=== PATIENT | female | born 1950 | race Caucasian/White ===

== ENCOUNTER 2016-11-18 15:36 | Emergency (ER) | payer OTHER ==
[~2016-11-18] VITALS: Ht 167.6 cm; Wt 72.8 kg
[2016-11-18] MEDS ORDERED: NITROGLYCERIN SINGLE TAB 0.4 MG SL PRN (16:00)
[2016-11-18] MEDS ORDERED: SODIUM CHLORIDE FLUSH 10ML SYR IVF ONE (16:00)
[2016-11-18] MEDS ORDERED: MONT10TA6 PO (16:19)
[2016-11-18] MEDS ORDERED: LISI-170 PO (16:19)
[2016-11-18] MEDS ORDERED: ALBU18HF INH (16:19)
[2016-11-18 16:20] LABS: HEMATOCRIT 42.9 % (34.6-47.8); HEMOGLOBIN 14.6 g/dL (11.7-16.4); WHITE BLOOD COUNT 4.9 x10^3/uL (3.4-10)
[2016-11-18 16:32] LABS: BLOOD UREA NITROGEN 21 mg/dL (7-18)
[2016-11-18 16:39] LABS: IS PT STATUS REG ER OR PRE ER? YES
[2016-11-18 18:07] VITALS: BP 161/83
== END 2016-11-18 18:09 | disposition home or self-care (01) ==
LOC: ED 18:03
DX: R07.9 Chest pain, unspecified (principal); R20.0 Anesthesia of skin
CPT/HCPCS: 36415; 71010; 80048; 82040; 83880; 84484; 85025; 93005; 99285

== ENCOUNTER → 2016-12-22 | Outpatient (CLI) | payer OTHER ==
[~2016-12-22] MED LIST: ALBU18HF INH; LISI-170 PO; MONT10TA6 PO
== END | disposition home or self-care (01) ==
LOC: CVU 09:07
PROVIDERS: ATTEND Internal Medicine Cardiovascular Disease
DX: I35.8 Other nonrheumatic aortic valve disorders (principal); I10 Essential (primary) hypertension; E78.5 Hyperlipidemia, unspecified; Z87.891 Personal history of nicotine dependence
CPT/HCPCS: 93017; 93306

== ENCOUNTER → 2018-01-21 | Outpatient (CLI) | payer MEDICARE ==
[~2018-01-21] MED LIST changes: +OMNIPAQUE 350 MG/ML, 100ML BOTTLE ONE
== END | disposition home or self-care (01) ==
LOC: CFH 12:42
PROVIDERS: ATTEND Nurse Practitioner Primary Care
DX: R51 Headache (principal); J34.1 Cyst and mucocele of nose and nasal sinus
CPT/HCPCS: 70460; Q9967

== ENCOUNTER → 2018-03-14 | Outpatient (CLI) | payer MEDICARE ==
[~2018-03-14] MED LIST changes: -OMNIPAQUE 350 MG/ML, 100ML BOTTLE ONE
== END | disposition home or self-care (01) ==
LOC: CFH 15:35
PROVIDERS: ATTEND Nurse Practitioner Primary Care
DX: S83.241A Other tear of medial meniscus, current injury, right knee, initial encounter (principal); S83.281A Other tear of lateral meniscus, current injury, right knee, initial encounter; M17.11 Unilateral primary osteoarthritis, right knee; X58.XXXA Exposure to other specified factors, initial encounter; Y93.89 Activity, other specified; Y92.89 Other specified places as the place of occurrence of the external cause; Y99.8 Other external cause status

== ENCOUNTER 2019-04-04 22:41 | Emergency (ER) | payer MEDICARE ==
[~2019-04-04] VITALS: Ht 167.6 cm; Wt 70.9 kg
[2019-04-04 22:52] VITALS: BP 136/88
[2019-04-04] MEDS ORDERED: OXYMETAZOLINE NASAL SPRAY 0.05%,30ML ONE ×3 (22:54→23:55)
[2019-04-04] MEDS ORDERED: OXYMETAZOLINE NASAL SPRAY 0.05%, 15ML NAS ONE (23:00)
--- NOTE | 2019-04-04 23:05 | NUR ---
pt sitting up in chair stated nose bleed since 2099 today, takes aspirin. bleeding controlled, nose clip i place, erp at pt's side for eval
== END 2019-04-05 00:15 | disposition home or self-care (01) ==
LOC: ED 23:50
DX: R04.0 Epistaxis (principal); I10 Essential (primary) hypertension
CPT/HCPCS: 99282

== ENCOUNTER 2019-04-21 12:03 | Inpatient (IN) | payer MEDICARE ==
[~2019-04-21] VITALS: Ht 167.6 cm; Wt 70.1 kg
[2019-04-21] MEDS ORDERED: DILTIAZEM 5 MG/ML, 5ML IV ONE ×2 (12:30→13:00)
[2019-04-21] MEDS ORDERED: ASPIRIN 81 MG TABLET CHEW ONE (12:35)
[2019-04-21 12:55] LABS: BASOPHILS # (AUTO) 0.03 x10^3/uL (0-0.1); BASOPHILS % (AUTO) 1 % (0-1); EOSINOPHILS # (AUTO) 0.07 x10^3/uL (0-0.4); EOSINOPHILS % (AUTO) 1 % (1-7); LYMPHOCYTES # (AUTO) 1.65 x10^3/uL (1-3.4); LYMPHOCYTES % (AUTO) 31 % (22-44); MD NO; MEAN CORPUSCULAR HEMOGLOBIN 31.6 pg (27.0-34.8); MEAN CORPUSCULAR HGB CONC 33.1 g/dL (32.4-35.8); MEAN CORPUSCULAR VOLUME 95.4 fL (80-100); MEAN PLATELET VOLUME 9.6 fL (7.4-10.4); MONOCYTES # (AUTO) 0.48 x10^3/uL (0.2-0.8); MONOCYTES % (AUTO) 9 % (2-9); NEUTROPHILS # (AUTO) 3.14 x10^3/uL (1.8-6.8); NEUTROPHILS % (AUTO) 59 % (42-75); PLATELET COUNT 303 x10^3/uL (130-400); RED BLOOD COUNT 4.68 x10^6/uL (3.82-5.3); RED CELL DISTRIBUTION WIDTH 13.9 % (9.6-15.2)
[2019-04-21] MEDS: DILTIAZEM 125 MG in SODIUM CHLORIDE 0.9% 100 ML IV SCH ×3 (12:56→13:08)
[2019-04-21] MEDS ORDERED: ASPIRIN 81 MG TABLET CHEW PO ONE (13:00)
[2019-04-21 13:02] LABS: INTERNATIONAL NORMALIZED RATIO 1.01 (0.93-1.1); PROTHROMBIN TIME 10.7 Seconds (9.6-11.5)
[2019-04-21 13:03] LABS: ANION GAP 11 mmol/L (5-15); CALCIUM 9.1 mg/dL (8.5-10.1); CHLORIDE 107 mmol/L (98-107); T4 (THYROXINE) 9.1 mcg/dL (4.8-13.9)
[2019-04-21 13:06] LABS: TROPONIN I < 0.015 ng/mL (0.000-0.045)
[2019-04-21] MEDS ORDERED: SODIUM CHLORIDE FLUSH 10ML SYR IVF ONE (13:30)
--- NOTE | 2019-04-21 13:36 | NUR ---
PT ARRIVED TO ROOM, CHANGED INTO GOWN, ATTACHED TO CRASH PADS AND MONITORS. IV STARTED IN R FOREARM. PT EDUCATED ON PROCESS AND PLAN OF CARE. DILTIAZEM PUSH AND DRIP GIVEN TO GOOD EFFECT. HR ORIGINALLY 130'S-180'S, NOW 80'S-110'S. DENIES ANY NEEDS OR CONCERNS AT THIS TIME. CALL LIGHT IN REACH.
--- NOTE | 2019-04-21 14:09 | NUR ---
Report recieved from Carlotta JACKSNO
[2019-04-21] MEDS ORDERED: ventolin hfa (14:21)
[2019-04-21] MEDS ORDERED: LOSA1TAB22 PO (14:21)
[2019-04-21] MEDS ORDERED: ASPI-515 PO (14:21)
[2019-04-21] MEDS ORDERED: ATOR20TA86 PO (14:21)
[2019-04-21] MEDS ORDERED: AMLO5TAB10 PO (14:21)
[2019-04-21] MEDS ORDERED: MOME220A9 INH (14:21)
--- NOTE | 2019-04-21 14:22 | NUR ---
Kian churchillmarcelina in [facility] - 04/21/19 at 1425 by LHAFEN Med rec completed, pt resting in bed, HR maintains a controlled rate on gtt, denies cp, skin pwd, speech clear, denies further needs
--- NOTE | 2019-04-21 14:25 | NUR ---
Med rec completed, pt resting in bed, HR maintains a controlled rate on gtt, denies cp, skin pwd, speech clear, denies further needs
[2019-04-21] MEDS ORDERED: SODIUM CHLORIDE FLUSH 10ML SYR IVF PRN (15:30)
[2019-04-21] MEDS ORDERED: ENOXAPARIN 60 MG/0.6 ML SQ SCH (16:00)
--- NOTE | 2019-04-21 16:20 | NUR ---
REPORT GIVEN TO IRON JACKSON
[2019-04-21] MEDS ORDERED: DILTIAZEM 125 MG in SODIUM CHLORIDE 0.9% 100 ML IV SCH (16:30)
[2019-04-21] MEDS ORDERED: ONDANSETRON 2MG/ML, 2ML IVPush PRN (17:00)
[2019-04-21] MEDS ORDERED: Enoxaparin 1 mg/kg protocol SQ SCH (17:00)
[2019-04-21] MEDS ORDERED: ACETAMINOPHEN 325 MG TABLET PO PRN (17:00)
[2019-04-21] MEDS ORDERED: PROMETHAZINE 25 MG/ML, 1ML IM PRN (17:00)
[2019-04-21] MEDS ORDERED: BISACODYL 10 MG SUPP PR PRN (17:00)
[2019-04-21] MEDS ORDERED: POLYETHYLENE GLYCOL 17 GM PACKET PO PRN (17:00)
[2019-04-21] MEDS ORDERED: DOCUSATE 100 MG CAPSULE PO PRN (17:00)
[2019-04-21] MEDS ORDERED: MORPHINE SULFATE 4 MG/ML, 1ML IVPush PRN (17:00)
[2019-04-21 17:10] LABS: TROPONIN I < 0.015 ng/mL (0.000-0.045)
[2019-04-21] MEDS ORDERED: ENOXAPARIN 60 MG/0.6 ML ONE (18:04)
[2019-04-21] MEDS: ENOXAPARIN 60 MG/0.6 ML SQ SCH (18:25)
--- NOTE | 2019-04-21 18:38 | NUR ---
meal tray given
--- NOTE | 2019-04-21 20:00 | NUR ---
BREAK RN: PT WATCHING TV IN ROOM. VS STABLE. CALL LIGHT IN PLACE. PATCH FINISHER ON. CALL LIGHT IN PLACE. WILL CONTINUE TO MONITOR WHILE PRIMARY RN IS ON BREAK.
--- NOTE | 2019-04-21 20:44 | NUR ---
repeat vs obtained, improved b/p of 106/65, pt resting in bed, denies pain or further needs
--- NOTE | 2019-04-21 22:07 | NUR ---
repeat vs obtained, returned to bed from BSC, denies pain or further needs
--- NOTE | 2019-04-21 22:12 | NUR ---
Report given to Milana JACKSON from Tele
[2019-04-21 22:44] LABS: TROPONIN I < 0.015 ng/mL (0.000-0.045)
[2019-04-21 23:24] VITALS: BP 120/76
[2019-04-22 01:52] VITALS: BP 110/69
[2019-04-22] MEDS: DILTIAZEM 125 MG in SODIUM CHLORIDE 0.9% 100 ML IV SCH (01:55)
[2019-04-22 05:54] LABS: BASOPHILS # (AUTO) 0.02 x10^3/uL (0-0.1); BASOPHILS % (AUTO) 1 % (0-1); EOSINOPHILS # (AUTO) 0.07 x10^3/uL (0-0.4); EOSINOPHILS % (AUTO) 2 % (1-7); LYMPHOCYTES # (AUTO) 1.98 x10^3/uL (1-3.4); LYMPHOCYTES % (AUTO) 48 % (22-44); MD NO; MEAN CORPUSCULAR HEMOGLOBIN 31.8 pg (27.0-34.8); MEAN CORPUSCULAR HGB CONC 33.3 g/dL (32.4-35.8); MEAN CORPUSCULAR VOLUME 95.3 fL (80-100); MEAN PLATELET VOLUME 9.8 fL (7.4-10.4); MONOCYTES # (AUTO) 0.38 x10^3/uL (0.2-0.8); MONOCYTES % (AUTO) 9 % (2-9); NEUTROPHILS # (AUTO) 1.66 x10^3/uL (1.8-6.8); NEUTROPHILS % (AUTO) 40 % (42-75); PLATELET COUNT 232 x10^3/uL (130-400); RED BLOOD COUNT 4.18 x10^6/uL (3.82-5.3)
[2019-04-22 05:57] LABS: CHLORIDE 109 mmol/L (98-107)
[2019-04-22] MEDS: ENOXAPARIN 60 MG/0.6 ML SQ SCH (06:04)
[2019-04-22 06:11] LABS: ALANINE AMINOTRANSFERASE 25 U/L (12-78); ALBUMIN 3.4 g/dL (3.4-5.0); ALKALINE PHOSPHATASE 75 U/L (45-117); ANION GAP 6 mmol/L (5-15); BILIRUBIN,TOTAL 0.7 mg/dL (0.2-1.0); CALCIUM 8.9 mg/dL (8.5-10.1); CHOL/HDL RATIO 2.9; CHOLESTEROL, TOTAL 150 mg/dL (140-239); CREATININE 0.95 mg/dL (0.55-1.02); HDL CHOL % 34 % (28-40); HDL CHOLESTEROL (DIRECT) 51 mg/dL (40-60); LDL CHOLESTEROL,CALCULATED 57 mg/dL (54-169); LDL/HDL RATIO 1.1 (0.5-3.0); TOTAL PROTEIN 6.1 g/dL (6.4-8.2); TRIGLYCERIDES 209 mg/dL (50-200); VLDL CHOLESTEROL 42 mg/dL (0-25)
[2019-04-22 08:02] VITALS: BP 102/69
[2019-04-22] MEDS ORDERED: LOSARTAN 100 MG TAB PO SCH (09:00)
[2019-04-22] MEDS ORDERED: ATORVASTATIN 10 MG TABLET PO SCH ×2 (09:00→21:00)
[2019-04-22] MEDS ORDERED: HYDROCHLOROTHIAZIDE 25 MG TABLET PO SCH (09:00)
[2019-04-22] MEDS: ASPIRIN 81 MG TABLET EC PO SCH (09:08)
[2019-04-22 13:17] VITALS: BP 104/68
[2019-04-22] MEDS: METOPROLOL TARTRATE 50 MG TAB PO SCH ×2 (14:01→21:00)
[2019-04-22 17:47] VITALS: BP 97/61
[2019-04-22] MEDS: APIXABAN 5 MG TABLET PO SCH (17:50)
[2019-04-22 18:00] VITALS: BP 97/61
[2019-04-23 01:43] VITALS: BP 107/66
[2019-04-23 05:53] LABS: BASOPHILS # (AUTO) 0.03 x10^3/uL (0-0.1); BASOPHILS % (AUTO) 1 % (0-1); EOSINOPHILS # (AUTO) 0.08 x10^3/uL (0-0.4); EOSINOPHILS % (AUTO) 2 % (1-7); LYMPHOCYTES # (AUTO) 1.69 x10^3/uL (1-3.4); LYMPHOCYTES % (AUTO) 42 % (22-44); MD NO; MEAN CORPUSCULAR HEMOGLOBIN 31.9 pg (27.0-34.8); MEAN CORPUSCULAR HGB CONC 33.7 g/dL (32.4-35.8); MEAN CORPUSCULAR VOLUME 94.7 fL (80-100); MEAN PLATELET VOLUME 9.8 fL (7.4-10.4); MONOCYTES # (AUTO) 0.42 x10^3/uL (0.2-0.8); MONOCYTES % (AUTO) 10 % (2-9); NEUTROPHILS # (AUTO) 1.82 x10^3/uL (1.8-6.8); NEUTROPHILS % (AUTO) 45 % (42-75); PLATELET COUNT 243 x10^3/uL (130-400); RED BLOOD COUNT 4.43 x10^6/uL (3.82-5.3); RED CELL DISTRIBUTION WIDTH 14.2 % (9.6-15.2)
[2019-04-23 05:56] VITALS: BP 110/67
[2019-04-23] MEDS: METOPROLOL TARTRATE 50 MG TAB PO SCH (05:58)
[2019-04-23] MEDS: APIXABAN 5 MG TABLET PO SCH (05:59)
[2019-04-23 06:04] LABS: ANION GAP 4 mmol/L (5-15); CALCIUM 9.1 mg/dL (8.5-10.1); CHLORIDE 108 mmol/L (98-107)
[2019-04-23 06:05] LABS: CREATININE 1.03 mg/dL (0.55-1.02)
[2019-04-23 07:18] VITALS: BP 101/69
[2019-04-23] MEDS: ASPIRIN 81 MG TABLET EC PO SCH (09:23)
[2019-04-23] MEDS ORDERED: APIX5TAB PO (09:52)
[2019-04-23] MEDS ORDERED: METO50TA82 PO (09:52)
== END 2019-04-23 10:50 | disposition home or self-care (01) | DRG 310 ==
LOC: ED 15:47 → SUATTDRO 16:29 → EDIP 16:36 → 5SO 22:40 → DCLOUNGE 04-23 10:43
PROVIDERS: ADMIT Internal Medicine; ATTEND Internal Medicine
DX: I48.91 Unspecified atrial fibrillation (principal); E78.1 Pure hyperglyceridemia; E78.5 Hyperlipidemia, unspecified; J11.1 Influenza due to unidentified influenza virus with other respiratory manifestations; I12.9 Hypertensive chronic kidney disease with stage 1 through stage 4 chronic kidney disease, or unspecified chronic kidney disease; J45.20 Mild intermittent asthma, uncomplicated; N18.3 Chronic kidney disease, stage 3 (moderate); Z79.01 Long term (current) use of anticoagulants; Z82.0 Family history of epilepsy and other diseases of the nervous system; Z79.82 Long term (current) use of aspirin; Z79.899 Other long term (current) drug therapy
CPT/HCPCS: 36415; 71045; 80048; 80053; 80061; 82040; 83735; 83880; 84100; 84436; 84443; 84484; 85025; 85610; 85730; 93005; 93306; G0378; J1650

== ENCOUNTER 2019-04-26 10:16 | Day surgery (SDC) | payer MEDICARE ==
[~2019-04-26] VITALS: Ht 165.1 cm; Wt 66.3 kg
[~2019-04-26 10:16] MED LIST changes: +AMLO5TAB10 PO; +APIX5TAB PO; +ASPI-515 PO; +ATOR20TA86 PO; +LOSA1TAB22 PO; +METO50TA82 PO; +MOME220A9 INH; +PROPOFOL 10 MG/ML, 20ML ONE; +ventolin hfa
[2019-04-26] MEDS ORDERED: SODIUM CHLORIDE 0.9% 500 ML IV PRN (11:05)
[2019-04-26 11:09] VITALS: BP 141/107
[2019-04-26] MEDS ORDERED: PLEASE ENTER HEIGHT AND WEIGHT MC SCH (11:30)
[2019-04-26] MEDS ORDERED: SODIUM CHLORIDE 0.9% 1,000 ML IV SCH (11:30)
== END 2019-04-26 13:19 | disposition home or self-care (01) ==
LOC: CACL 10:16
PROVIDERS: ATTEND Internal Medicine Cardiovascular Disease
DX: I48.0 Paroxysmal atrial fibrillation (principal); I34.0 Nonrheumatic mitral (valve) insufficiency; I10 Essential (primary) hypertension; E78.5 Hyperlipidemia, unspecified; J45.909 Unspecified asthma, uncomplicated; Z79.01 Long term (current) use of anticoagulants; Z79.82 Long term (current) use of aspirin; Z79.899 Other long term (current) drug therapy
CPT/HCPCS: 92960; 93312; 93321; 93325; J2704

== ENCOUNTER 2019-06-15 11:03 | Day surgery (SDC) | payer MEDICARE ==
[~2019-06-15 11:03] MED LIST changes: -PROPOFOL 10 MG/ML, 20ML ONE
[2019-06-30] MEDS ORDERED: CETI-158 PO (08:34)
[2019-06-30] MEDS ORDERED: AMLO5TAB4 PO (08:34)
[2019-06-30] MEDS ORDERED: FLEC50TA25 PO (08:34)
[2019-06-30] MEDS ORDERED: ALBU18HF INH (08:34)
[2019-06-30] MEDS ORDERED: MONT10TA11 PO (08:34)
[2019-06-30] MEDS ORDERED: METO50TA82 PO (08:34)
[2019-06-30] MEDS ORDERED: LOSA25TA25 PO (08:34)
[2019-07-22] MEDS ORDERED: SOTA80TA18 PO (09:26)
== END 2019-06-15 11:42 | disposition home or self-care (01) ==
LOC: CACL 11:03
PROVIDERS: ATTEND Internal Medicine Cardiovascular Disease
DX: I48.91 Unspecified atrial fibrillation (principal); Z53.8 Procedure and treatment not carried out for other reasons; Z79.01 Long term (current) use of anticoagulants; Z79.899 Other long term (current) drug therapy; Z72.89 Other problems related to lifestyle; Z87.891 Personal history of nicotine dependence; Z85.828 Personal history of other malignant neoplasm of skin; Z82.49 Family history of ischemic heart disease and other diseases of the circulatory system
CPT/HCPCS: 93005

== ENCOUNTER → 2019-06-21 | Outpatient (CLI) | payer MEDICARE ==
[~2019-06-21] MED LIST changes: +REGADENOSON 0.4 MG/5 ML SYRINGE ONE
== END | disposition home or self-care (01) ==
LOC: CFH 12:04
PROVIDERS: ATTEND Internal Medicine Cardiovascular Disease
DX: I25.9 Chronic ischemic heart disease, unspecified (principal); I10 Essential (primary) hypertension
CPT/HCPCS: 78452; 93017; A9502; J2785

== ENCOUNTER 2019-09-12 06:09 | Day surgery (SDC) | payer MEDICARE ==
[~2019-09-12] VITALS: Ht 167.6 cm; Wt 68.2 kg
[~2019-09-12 06:09] MED LIST changes: +AMLO5TAB4 PO; +CETI-158 PO; +FLEC50TA25 PO; +LOSA25TA25 PO; +MONT10TA11 PO; -REGADENOSON 0.4 MG/5 ML SYRINGE ONE; +SOTA80TA18 PO
[2019-09-12] MEDS ORDERED: METO50TA82 PO (06:40)
[2019-09-12 06:56] VITALS: BP 124/94
[2019-09-12 07:21] LABS: BASOPHILS # (AUTO) 0.02 x10^3/uL (0-0.1); BASOPHILS % (AUTO) 1 % (0-1); EOSINOPHILS # (AUTO) 0.12 x10^3/uL (0-0.4); EOSINOPHILS % (AUTO) 4 % (1-7); LYMPHOCYTES # (AUTO) 1.13 x10^3/uL (1-3.4); LYMPHOCYTES % (AUTO) 37 % (22-44); MD NO; MEAN CORPUSCULAR HEMOGLOBIN 30.9 pg (27.0-34.8); MEAN CORPUSCULAR VOLUME 93.7 fL (80-100); MEAN PLATELET VOLUME 8.6 fL (7.4-10.4); MONOCYTES # (AUTO) 0.31 x10^3/uL (0.2-0.8); MONOCYTES % (AUTO) 10 % (2-9); NEUTROPHILS # (AUTO) 1.49 x10^3/uL (1.8-6.8); NEUTROPHILS % (AUTO) 49 % (42-75); PLATELET COUNT 228 x10^3/uL (130-400); RED BLOOD COUNT 4.52 x10^6/uL (3.82-5.3); RED CELL DISTRIBUTION WIDTH 13.6 % (9.6-15.2)
[2019-09-12 07:29] LABS: ANION GAP 4 mmol/L (5-15); CALCIUM 8.7 mg/dL (8.5-10.1); CHLORIDE 110 mmol/L (98-107)
[2019-09-12] MEDS ORDERED: PROPOFOL 10 MG/ML, 20ML ONE (09:28)
== END 2019-09-12 10:41 | disposition home or self-care (01) ==
LOC: CACL 06:09
PROVIDERS: ATTEND Internal Medicine Cardiovascular Disease
DX: I48.91 Unspecified atrial fibrillation (principal); E78.5 Hyperlipidemia, unspecified; I12.9 Hypertensive chronic kidney disease with stage 1 through stage 4 chronic kidney disease, or unspecified chronic kidney disease; N18.9 Chronic kidney disease, unspecified; J45.909 Unspecified asthma, uncomplicated; Z79.899 Other long term (current) drug therapy; Z79.01 Long term (current) use of anticoagulants; Z72.89 Other problems related to lifestyle; Z87.891 Personal history of nicotine dependence; Z85.828 Personal history of other malignant neoplasm of skin; Z82.49 Family history of ischemic heart disease and other diseases of the circulatory system
CPT/HCPCS: 36415; 71046; 80048; 85025; 92960; J2704

== ENCOUNTER 2019-09-28 13:05 | Day surgery (SDC) | payer MEDICARE ==
[~2019-09-28] VITALS: Ht 167.6 cm; Wt 68.2 kg
[2019-09-28] MEDS ORDERED: PROPOFOL 10 MG/ML, 20ML ONE (13:27)
[2019-09-28 13:30] VITALS: BP 119/71
[2019-09-28] MEDS ORDERED: SODIUM CHLORIDE FLUSH 10ML SYR IVF SCH (21:00)
== END 2019-09-28 14:37 | disposition home or self-care (01) ==
LOC: CACL 13:05
PROVIDERS: ATTEND Internal Medicine Cardiovascular Disease
DX: I48.91 Unspecified atrial fibrillation (principal); I12.9 Hypertensive chronic kidney disease with stage 1 through stage 4 chronic kidney disease, or unspecified chronic kidney disease; N18.9 Chronic kidney disease, unspecified; E78.5 Hyperlipidemia, unspecified; J45.909 Unspecified asthma, uncomplicated; Z79.899 Other long term (current) drug therapy; Z79.01 Long term (current) use of anticoagulants; Z85.828 Personal history of other malignant neoplasm of skin; Z72.89 Other problems related to lifestyle; Z87.891 Personal history of nicotine dependence; Z82.49 Family history of ischemic heart disease and other diseases of the circulatory system; Z98.890 Other specified postprocedural states
CPT/HCPCS: 92960; 93005; J2704

== ENCOUNTER 2019-10-12 11:03 | Outpatient (CLI) | payer MEDICARE | END 2019-10-12 23:59 | disposition home or self-care (01) | LOC: STAR 11:03 | PROVIDERS: ATTEND Anesthesiology | DX: Z01.818 Encounter for other preprocedural examination (principal); Z11.59 Encounter for screening for other viral diseases | CPT/HCPCS: 36415; 87635 ==

== ENCOUNTER 2019-10-12 14:21 | Emergency (ER) | payer MEDICARE ==
[~2019-10-12] VITALS: Ht 167.6 cm; Wt 69.9 kg
--- NOTE | 2019-10-12 14:43 | NUR ---
DR HERRING AT BEDSIDE TO CECE PT. 69 YR OLD FEMALE HERE WITH C/O "AFIB" WITH AN EPISODE OF SYNCOPE. "I PUT MY HEAD DOWN ON THE COUNTER AND WOKE UP ON THE FLOOR" THIS ALSO HAPPENED ON WEDNESDAY, HIT HEAD, STITCHES PLACED. WENT BACK INTO A NORMAL RHYTHM AFTER SYNCOPE EPISODE. PT SCHEDULED FOR SECOND ABLATION ON WEDNESDAY WITH DR. Amilcar MORSE. PT WITH EPISODES OF AFIB SINCE APR. PT TAKES ELIQUIS, METOPROLOL, FLECANIDE AND LOSARTAN.
[2019-10-12] MEDS ORDERED: DILTIAZEM 5 MG/ML, 5ML ONE (14:49)
[2019-10-12] MEDS ORDERED: SODIUM CHLORIDE 0.9% 1,000 ML IV ONE (14:51)
--- NOTE | 2019-10-12 14:58 | NUR ---
REPORT TO YULI Benitez RN.
[2019-10-12] MEDS ORDERED: SODIUM CHLORIDE FLUSH 10ML SYR IVF ONE (15:00)
[2019-10-12] MEDS ORDERED: DILTIAZEM 5 MG/ML, 5ML IV ONE (15:00)
[2019-10-12 15:19] LABS: BASOPHILS # (AUTO) 0.02 x10^3/uL (0-0.1); BASOPHILS % (AUTO) 1 % (0-1); EOSINOPHILS # (AUTO) 0.09 x10^3/uL (0-0.4); EOSINOPHILS % (AUTO) 2 % (1-7); LYMPHOCYTES # (AUTO) 0.94 x10^3/uL (1-3.4); LYMPHOCYTES % (AUTO) 18 % (22-44); MD NO; MEAN CORPUSCULAR HEMOGLOBIN 30.8 pg (27.0-34.8); MEAN CORPUSCULAR HGB CONC 32.2 g/dL (32.4-35.8); MEAN CORPUSCULAR VOLUME 95.6 fL (80-100); MEAN PLATELET VOLUME 9.8 fL (7.4-10.4); MONOCYTES # (AUTO) 0.34 x10^3/uL (0.2-0.8); MONOCYTES % (AUTO) 6 % (2-9); NEUTROPHILS # (AUTO) 3.85 x10^3/uL (1.8-6.8); NEUTROPHILS % (AUTO) 74 % (42-75); PLATELET COUNT 274 x10^3/uL (130-400); RED BLOOD COUNT 3.83 x10^6/uL (3.82-5.3); RED CELL DISTRIBUTION WIDTH 14.2 % (9.6-15.2)
[2019-10-12 15:23] LABS: ALBUMIN 4.1 g/dL (3.4-5.0); ANION GAP 6 mmol/L (5-15); CALCIUM 9.4 mg/dL (8.5-10.1); CHLORIDE 111 mmol/L (98-107)
[2019-10-12 15:27] LABS: TROPONIN I < 0.015 ng/mL (0.000-0.045)
--- NOTE | 2019-10-12 15:46 | NUR ---
PATIENT AMBULATORY WITH STEADY GAIT TO RESTROOM. HR MAINTAINING IN 70'S AFTER 10MG CARDIZEM PUSHED.
--- NOTE | 2019-10-12 16:31 | NUR ---
[facility] in [facility] - 10/12/19 at 1646 by FRANCO Patient given discharge instructions and they have confirmed that they understand the instructions. Patient ambulatory with steady gait.
[2019-10-12] MEDS ORDERED: METOPROLOL TARTRATE 25 MG TAB ONE (16:41)
--- NOTE | 2019-10-12 16:46 | NUR ---
UPONG GETTING PATIENT TO DISCHARGE, TALITA STATES "IT FEELS LIKE MY HEART IS RACING AGAIN". PLACED BACK ON BATTER MIXER. AFIB PRESENT IN 80'S-90'S. ERP NOTIFIED. ORDERS FOR PO METOPROLOL AND MONITORING PATIENT GIVEN
[2019-10-12] MEDS ORDERED: METOPROLOL TARTRATE 25 MG TAB PO ONE (17:00)
[2019-10-12 17:39] VITALS: BP 143/86
--- NOTE | 2019-10-12 17:39 | NUR ---
PATIENT MAINTAINING HR IN 70'S, ERP NOTIFIED. PATIENT FEELS COMFORTABLE BEING DISCHARGED, VERBALIZED UNDERSANDING OF DISCHARGE INSTRUCTIONS AND WHEN/IF TO RETURN TO ED.
== END 2019-10-12 17:51 | disposition home or self-care (01) ==
LOC: ED 16:14
DX: I48.92 Unspecified atrial flutter (principal); R42 Dizziness and giddiness; R55 Syncope and collapse; R00.2 Palpitations; R07.89 Other chest pain; I10 Essential (primary) hypertension; I48.91 Unspecified atrial fibrillation; E78.00 Pure hypercholesterolemia, unspecified
CPT/HCPCS: 36415; 71045; 80048; 82040; 84484; 85025; 93005; 96361; 96374; 99285; J7030

== ENCOUNTER 2019-10-16 06:06 | Observation (INO) | payer MEDICARE ==
[~2019-10-16] VITALS: Ht 167.6 cm; Wt 72.2 kg
[2019-10-16] MEDS ORDERED: SODIUM CHLORIDE 0.9% 1,000 ML IV SCH (06:37)
[2019-10-16 06:45] VITALS: BP 137/82
[2019-10-16] MEDS ORDERED: SODIUM CHLORIDE 0.9% 1,000 ML IV ONE (07:00)
[2019-10-16] MEDS ORDERED: MIDAZOLAM 1 MG/ML, 2ML ONE (08:25)
[2019-10-16] MEDS ORDERED: FENTANYL PF 250 MCG/5ML ONE (08:25)
[2019-10-16] MEDS ORDERED: SUCCINYLCHOLINE 20 MG/ML, 10ML ONE (08:26)
[2019-10-16] MEDS ORDERED: DEXAMETHASONE 4 MG/ML, 1ML ONE ×2 (08:26)
[2019-10-16] MEDS ORDERED: LIDOCAINE 1%, 20ML ONE (08:59)
[2019-10-16] MEDS ORDERED: HEPARIN 1,000 UNITS/ML, 10ML ONE ×3 (11:26)
[2019-10-16] MEDS ORDERED: ACETAMINOPHEN 325 MG TABLET PO PRN ×2 (12:30)
[2019-10-16] MEDS ORDERED: MIDAZOLAM 1 MG/ML, 2ML IV PRN (12:30)
[2019-10-16] MEDS ORDERED: HYDROmorphone 1 MG/ML, 1ML INJ IVPush PRN (12:30)
[2019-10-16] MEDS ORDERED: DIAZEPAM 5 MG/ML, 2ML IVPush PRN (12:30)
[2019-10-16] MEDS ORDERED: APIXABAN 5 MG TABLET PO SCH (12:30)
[2019-10-16] MEDS ORDERED: OXYcodone 5 MG/5 ML ORAL.SOL UDC PO PRN (12:30)
[2019-10-16] MEDS ORDERED: MEPERIDINE/PF 25MG/0.5ML IVPush PRN (12:30)
[2019-10-16] MEDS ORDERED: ALBUTEROL SULFATE 2.5 MG/3 ML NPPB PRN (12:30)
[2019-10-16] MEDS ORDERED: EPHEDRINE 50 MG/ML, 1ML IVPush PRN (12:30)
[2019-10-16] MEDS ORDERED: DIPHENHYDRAMINE 50 MG/ML, 1ML IVPush PRN (12:30)
[2019-10-16] MEDS ORDERED: FENTANYL PF 100 MCG/2ML IV PRN (12:30)
[2019-10-16] MEDS ORDERED: PROMETHAZINE 25 MG/ML, 1ML IVPush PRN (12:30)
[2019-10-16] MEDS ORDERED: CETIRIZINE 10 MG TABLET PO PRN (12:30)
[2019-10-16] MEDS ORDERED: ONDANSETRON 2MG/ML, 2ML IVPush PRN ×2 (12:30→17:00)
[2019-10-16] MEDS ORDERED: hydrALAzine 20 MG/ML, 1ML IV PRN (12:30)
[2019-10-16] MEDS ORDERED: LABETALOL 5MG/ML, 20ML IV PRN (12:30)
[2019-10-16] MEDS ORDERED: PROMETHAZINE 12.5 MG SUPP PR PRN (12:30)
[2019-10-16] MEDS ORDERED: ALBUTEROL HFA 90 MCG/SPRAY INH PRN (12:30)
[2019-10-16] MEDS ORDERED: APIXABAN 5 MG TABLET ONE (12:39)
[2019-10-16 13:50] VITALS: BP 129/76
[2019-10-16 14:05] VITALS: BP 125/77
[2019-10-16] MEDS ORDERED: MORPHINE SULFATE 4 MG/ML, 1ML ONE (16:50)
[2019-10-16] MEDS: FLECAINIDE 100MG TABLET PO SCH (16:57)
[2019-10-16] MEDS ORDERED: MORPHINE SULFATE 4 MG/ML, 1ML IVPush PRN (17:00)
[2019-10-16 20:00] VITALS: BP 119/67
[2019-10-16] MEDS: METOPROLOL TARTRATE 25 MG TAB PO SCH (20:45)
[2019-10-16] MEDS: COLCHICINE 0.6 MG CAPSULE PO SCH (20:45)
[2019-10-16] MEDS: APIXABAN 5 MG TABLET PO SCH (20:45)
[2019-10-16] MEDS ORDERED: MONTELUKAST 10 MG TABLET PO SCH (21:00)
[2019-10-16] MEDS ORDERED: MOMETASONE FUROATE 200 MCG INH SCH (21:00)
[2019-10-17 00:32] VITALS: BP 109/69
[2019-10-17] MEDS: FLECAINIDE 100MG TABLET PO SCH (05:50)
[2019-10-17 07:16] VITALS: BP 122/71
[2019-10-17] MEDS ORDERED: LOSARTAN 100 MG TAB PO SCH (09:00)
[2019-10-17] MEDS ORDERED: ATORVASTATIN 10 MG TABLET PO SCH (09:00)
[2019-10-17] MEDS: METOPROLOL TARTRATE 25 MG TAB PO SCH (09:15)
[2019-10-17] MEDS: COLCHICINE 0.6 MG CAPSULE PO SCH (09:15)
[2019-10-17] MEDS: APIXABAN 5 MG TABLET PO SCH (09:16)
[2019-10-17] MEDS ORDERED: COLC0.6C3 PO (09:35)
[2019-10-17] MEDS ORDERED: FLEC100T PO (09:35)
[2019-10-17] MEDS ORDERED: METO25TA35 PO (09:35)
[2019-10-17] MEDS ORDERED: ACET325T26 PO (09:35)
== END 2019-10-17 10:54 | disposition home or self-care (01) ==
LOC: CACL 06:06 → ORIP 12:17 → 5SO 13:51 → DCLOUNGE 10-17 10:25
PROVIDERS: ADMIT Internal Medicine Cardiovascular Disease; ATTEND Internal Medicine Cardiovascular Disease
DX: I48.4 Atypical atrial flutter (principal); I48.91 Unspecified atrial fibrillation; I10 Essential (primary) hypertension; E78.5 Hyperlipidemia, unspecified; J45.909 Unspecified asthma, uncomplicated; Z79.899 Other long term (current) drug therapy; Z79.01 Long term (current) use of anticoagulants
CPT/HCPCS: 85347; 93306; 93312; 93321; 93325; 93462; 93613; 93621; 93653; 93655; 93662; 96374; C1730; C1732; C1759; C1766; C1893; C1894; G0378; J0330; J1100; J1644; J2250; J2270; J3010; J3490

== ENCOUNTER 2019-10-20 10:53 | Emergency (ER) | payer MEDICARE ==
[~2019-10-20] VITALS: Ht 167.6 cm; Wt 68.7 kg
[~2019-10-20 10:53] MED LIST changes: +ACET325T26 PO; +COLC0.6C3 PO; +FLEC100T PO; +METO25TA35 PO
--- NOTE | 2019-10-20 11:15 | NUR ---
PT AMBULATORY TO ROOM, STEADY GAIT.
--- NOTE | 2019-10-20 11:24 | NUR ---
THIS PT WAS IN AFIB RVR, FELT HER HEART RACING AND THEN FELT FAINT ON 10/07 WHEN SHE FELL, "WHEN I CAME TO I HAD CONVERTED." THIS HAPPENED AGAIN ON 10/11. SUCCESSFUL ABLATION ON 10/15. PT PRESENTS TODAY BECAUSE SHE OBTAINED A NODULE ON HER HEAD FROM THE FIRST FALL THAT REQUIRED STITCHES. STICHES WERE REMOVED ON WEDNESDAY BUT SWELLING IS STILL SIGNIGICANT.
--- NOTE | 2019-10-20 11:30 | NUR ---
ERP TO BEDSIDE TO UPDATE PT ON POC.
[2019-10-20] MEDS ORDERED: LIDOCAINE-MPF 1%, 5ML ONE (11:39)
[2019-10-20] MEDS ORDERED: LIDOCAINE-MPF 1%, 5ML INFIL ONE (12:00)
[2019-10-20 12:08] VITALS: BP 147/84
== END 2019-10-20 12:30 | disposition home or self-care (01) ==
LOC: ED 11:46
DX: S00.03XA Contusion of scalp, initial encounter (principal); I10 Essential (primary) hypertension; I48.91 Unspecified atrial fibrillation; E78.00 Pure hypercholesterolemia, unspecified; X58.XXXA Exposure to other specified factors, initial encounter; Y93.89 Activity, other specified; Y92.89 Other specified places as the place of occurrence of the external cause; Y99.8 Other external cause status
CPT/HCPCS: 10060; 99282

== ENCOUNTER 2020-01-05 06:07 | Day surgery (SDC) | payer MEDICARE ==
[~2020-01-05] VITALS: Ht 167.6 cm; Wt 68.2 kg
[2020-01-05] MEDS ORDERED: METO25TA35 PO (06:48)
[2020-01-05] MEDS ORDERED: METO50TA82 PO (06:48)
[2020-01-05] MEDS ORDERED: AMLO-150 PO (06:49)
[2020-01-05 06:53] VITALS: BP 108/73
[2020-01-05 07:04] LABS: ANION GAP 4 mmol/L (5-15); CALCIUM 8.9 mg/dL (8.5-10.1); CHLORIDE 111 mmol/L (98-107); CREATININE 1.05 mg/dL (0.55-1.02)
[2020-01-05 07:05] LABS: BASOPHILS % (AUTO) 1 % (0-1); EOSINOPHILS % (AUTO) 4 % (1-7); LYMPHOCYTES % (AUTO) 45 % (22-44); MEAN CORPUSCULAR HEMOGLOBIN 30.6 pg (27.0-34.8); MEAN CORPUSCULAR HGB CONC 32.8 g/dL (32.4-35.8); MEAN PLATELET VOLUME 9.5 fL (7.4-10.4); MONOCYTES % (AUTO) 9 % (2-9); NEUTROPHILS % (AUTO) 42 % (42-75); PLATELET COUNT 253 x10^3/uL (130-400); RED BLOOD COUNT 4.83 x10^6/uL (3.82-5.3); RED CELL DISTRIBUTION WIDTH 14.8 % (9.6-15.2)
[2020-01-05 07:07] LABS: MD NO
[2020-01-05] MEDS ORDERED: PROPOFOL 10 MG/ML, 20ML ONE (07:28)
== END 2020-01-05 08:19 | disposition home or self-care (01) ==
LOC: CACL 06:07
PROVIDERS: ATTEND Internal Medicine Cardiovascular Disease
DX: I48.92 Unspecified atrial flutter (principal); I48.91 Unspecified atrial fibrillation; I47.1 Supraventricular tachycardia; I10 Essential (primary) hypertension; E78.2 Mixed hyperlipidemia; Z79.01 Long term (current) use of anticoagulants; Z79.899 Other long term (current) drug therapy
CPT/HCPCS: 36415; 80048; 85025; 92960; J2704

== ENCOUNTER 2020-01-12 12:42 | Emergency (ER) | payer MEDICARE ==
[~2020-01-12] VITALS: Ht 167.6 cm; Wt 69.7 kg
[~2020-01-12 12:42] MED LIST changes: +AMLO-150 PO; +AMLO-210 PO; -AMLO5TAB10 PO
[2020-01-12] MEDS ORDERED: SODIUM CHLORIDE FLUSH 10ML SYR IVF ONE (13:00)
--- NOTE | 2020-01-12 13:03 | NUR ---
PATIENT WALKED BACK FROM TRIAGE WITH CHIEF C/O LOW HR OF 50 AND EPISODE OF FAINTING THIS MORNING. PATIENT DENIES CHEST PAIN, NO SOB. PATIENT DOES REPORT SOME NAUSEA. PATIENT HAS HISTORY OF A-FIB. NO SIGNS OF ACUTE DISTRESS, CONNECTED TO DISTRICT MANAGER, HR IS 59, CALL LIGHT WITHIN REACH.
--- NOTE | 2020-01-12 13:16 | NUR ---
ERMD AT BEDSIDE FOR EVALUATION.
[2020-01-12] MEDS ORDERED: NITR100C PO (13:28)
[2020-01-12] MEDS ORDERED: COLC0.6T37 PO (13:28)
--- NOTE | 2020-01-12 13:33 | NUR ---
20 GAUGE IV STARTED LEFT AC, BLOOD COLLECTED AND SENT TO LAB. NO FURTHER NEEDS AT THIS TIME.
[2020-01-12 14:02] LABS: BASOPHILS % (AUTO) 1 % (0-1); EOSINOPHILS % (AUTO) 2 % (1-7); LYMPHOCYTES % (AUTO) 24 % (22-44); MEAN CORPUSCULAR HEMOGLOBIN 30.6 pg (27.0-34.8); MEAN PLATELET VOLUME 9.3 fL (7.4-10.4); MONOCYTES % (AUTO) 9 % (2-9); NEUTROPHILS % (AUTO) 65 % (42-75); PLATELET COUNT 231 x10^3/uL (130-400); RED BLOOD COUNT 4.81 x10^6/uL (3.82-5.3); RED CELL DISTRIBUTION WIDTH 14.9 % (9.6-15.2)
[2020-01-12 14:04] LABS: ALBUMIN 4.1 g/dL (3.4-5.0); ANION GAP 5 mmol/L (5-15); CALCIUM 9.3 mg/dL (8.5-10.1); CHLORIDE 108 mmol/L (98-107); CREATININE 1.16 mg/dL (0.55-1.02)
[2020-01-12 14:05] LABS: MD NO
[2020-01-12] MEDS ORDERED: SODIUM CHLORIDE 0.9%, 500ML IVBOLUS ONE (14:30)
--- NOTE | 2020-01-12 14:43 | NUR ---
BREAK RN FOR PRIMARY RN LYNN. PT AMBULATED TO RESTROOM WITH STEADY GAIT. RESTING IN POSITION OF COMFORT. DENIES ANY PAIN, DIZZINESS, LIGHTHEADEDNESS, SOB, ALONSO. READING ON TABLET. IVF INFUSING PER MD ORDER. VSS. BRADYCARDIAC ON MONITOR. CALL LIGHT IN REACH. FALL PRECAUTIONS IN PLACE. SPOUSE AT BEDSIDE.
--- NOTE | 2020-01-12 15:17 | NUR ---
REPORT AND CARE BACK TO PRIMARY MANUEL BAILEY
[2020-01-12 15:25] VITALS: BP 125/66
--- NOTE | 2020-01-12 15:45 | NUR ---
Patient and significant other given discharge instructions and they have confirmed that they understand the instructions. Patient ambulatory with steady gait from ED.
== END 2020-01-12 15:47 | disposition home or self-care (01) ==
LOC: ED 13:38
DX: E86.0 Dehydration (principal); R00.1 Bradycardia, unspecified; R42 Dizziness and giddiness; R07.89 Other chest pain; I10 Essential (primary) hypertension; I44.0 Atrioventricular block, first degree; I48.91 Unspecified atrial fibrillation; E78.00 Pure hypercholesterolemia, unspecified
CPT/HCPCS: 36415; 71045; 80048; 82040; 83735; 85025; 93005; 99285; J7040

== ENCOUNTER 2020-02-06 10:09 | Observation (INO) | payer MEDICARE ==
[~2020-02-06] VITALS: Ht 167.6 cm; Wt 68.0 kg
[~2020-02-06 10:09] MED LIST changes: +COLC0.6T37 PO; -MONT10TA11 PO; +MONT10TA96 PO; +NITR100C PO
[2020-02-06] MEDS: SODIUM CHLORIDE 0.9% 1,000 ML IV SCH ×2 (10:30→17:58)
[2020-02-06 10:31] VITALS: BP 126/77
[2020-02-06] MEDS ORDERED: PLEASE ENTER HEIGHT AND WEIGHT MC SCH (11:00)
[2020-02-06] MEDS ORDERED: FENTANYL PF 100 MCG/2ML ONE (11:47)
[2020-02-06] MEDS ORDERED: CEFAZOLIN 1,000 MG ONE (11:47)
[2020-02-06] MEDS ORDERED: LIDOCAINE 2%, 20ML ONE (11:47)
[2020-02-06] MEDS ORDERED: CEFAZOLIN PMX 1GM/50ML 50 ML ONE (11:47)
[2020-02-06] MEDS ORDERED: MIDAZOLAM 1 MG/ML, 5ML ONE (11:47)
[2020-02-06] MEDS ORDERED: DIPHENHYDRAMINE 50 MG/ML, 1ML ONE (13:24)
[2020-02-06] MEDS ORDERED: LIDOCAINE 1%, 20ML ONE (13:25)
[2020-02-06] MEDS ORDERED: HOLD MEDICATION MC PRN (14:00)
[2020-02-06] MEDS ORDERED: CETIRIZINE 10 MG TABLET PO PRN (14:00)
[2020-02-06] MEDS ORDERED: ACETAMINOPHEN 325 MG TABLET PO PRN ×2 (14:00)
[2020-02-06] MEDS ORDERED: ACETAMINOPHEN 325 MG TABLET ONE (14:47)
[2020-02-06] MEDS ORDERED: HYDROcodone/APAP 5/325 TABLET ONE (16:01)
[2020-02-06] MEDS: HYDROcodone/APAP 5/325 TABLET PO PRN ×3 (16:06→22:05)
[2020-02-06 16:27] VITALS: BP 110/61
[2020-02-06] MEDS: FLECAINIDE 100MG TABLET PO SCH (16:32)
[2020-02-06 18:46] VITALS: BP 101/64
[2020-02-06] MEDS: APIXABAN 5 MG TABLET PO SCH (19:53)
[2020-02-06] MEDS ORDERED: MONTELUKAST 10 MG TABLET PO SCH (21:00)
[2020-02-06] MEDS ORDERED: ATORVASTATIN 10 MG TABLET PO SCH (21:00)
[2020-02-06] MEDS: METOPROLOL TARTRATE 25 MG TAB PO SCH (21:05)
[2020-02-06] MEDS: SODIUM CHLORIDE FLUSH 10ML SYR IVF SCH (21:06)
[2020-02-06] MEDS: CEFAZOLIN PMX 1GM/50ML 50 ML IVPB SCH (21:12)
[2020-02-07 01:18] VITALS: BP 121/78
[2020-02-07] MEDS: HYDROcodone/APAP 5/325 TABLET PO PRN (02:24)
[2020-02-07] MEDS: FLECAINIDE 100MG TABLET PO SCH (04:00)
[2020-02-07] MEDS: CEFAZOLIN PMX 1GM/50ML 50 ML IVPB SCH (04:00)
[2020-02-07 07:48] VITALS: BP 134/74
[2020-02-07] MEDS ORDERED: ACET325T26 PO (08:21)
[2020-02-07] MEDS ORDERED: HYDR-3237 PO (08:57)
[2020-02-07] MEDS: APIXABAN 5 MG TABLET PO SCH ×2 (09:00→10:19)
[2020-02-07] MEDS: SODIUM CHLORIDE FLUSH 10ML SYR IVF SCH (09:00)
[2020-02-07] MEDS ORDERED: LOSARTAN 100 MG TAB PO SCH (09:00)
[2020-02-07] MEDS ORDERED: AMLODIPINE 5 MG TABLET PO SCH (09:00)
[2020-02-07] MEDS: METOPROLOL TARTRATE 25 MG TAB PO SCH (10:19)
== END 2020-02-07 11:11 | disposition home or self-care (01) ==
LOC: CACL 10:09 → ORIP 13:58 → 5SO 16:25 → DCLOUNGE 02-07 11:05
PROVIDERS: ADMIT Internal Medicine Cardiovascular Disease; ATTEND Internal Medicine Cardiovascular Disease
DX: I49.5 Sick sinus syndrome (principal); I48.91 Unspecified atrial fibrillation; I48.92 Unspecified atrial flutter; I10 Essential (primary) hypertension; E78.2 Mixed hyperlipidemia; C44.91 Basal cell carcinoma of skin, unspecified; J45.909 Unspecified asthma, uncomplicated; F10.10 Alcohol abuse, uncomplicated; Z79.01 Long term (current) use of anticoagulants; Z79.899 Other long term (current) drug therapy
CPT/HCPCS: 33208; 71045; 93308; 96365; 96366; 99156; 99157; C1779; C1785; C1892; G0378; J0690; J1200; J2250; J3010; J3490

== ENCOUNTER → 2020-02-08 | Outpatient (CLI) | payer MEDICARE ==
[~2020-02-08] MED LIST changes: +HYDR-3237 PO; +MONT10TA11 PO; -MONT10TA96 PO
== END | disposition home or self-care (01) ==
LOC: CVU 13:48
PROVIDERS: ATTEND Internal Medicine Cardiovascular Disease
DX: I08.3 Combined rheumatic disorders of mitral, aortic and tricuspid valves (principal); I31.3 Pericardial effusion (noninflammatory); I49.5 Sick sinus syndrome
CPT/HCPCS: 93308; 93321; 93325

== ENCOUNTER 2020-10-25 17:33 | Emergency (ER) | payer MEDICARE ==
[~2020-10-25] VITALS: Ht 167.6 cm; Wt 68.5 kg
[~2020-10-25 17:33] MED LIST changes: +AMIO200T42 PO; -ASPI-515 PO; +ASPI-963 PO; +ATOR40TA78 PO; -MONT10TA11 PO; +MONT10TA17 PO
[2020-10-25 18:26] LABS: BASOPHILS % (AUTO) 1 % (0-1); EOSINOPHILS % (AUTO) 5 % (1-7); LYMPHOCYTES % (AUTO) 21 % (22-44); MEAN CORPUSCULAR HEMOGLOBIN 32.8 pg (27.0-34.8); MEAN CORPUSCULAR HGB CONC 34.4 g/dL (32.4-35.8); MEAN PLATELET VOLUME 8.9 fL (7.4-10.4); MONOCYTES % (AUTO) 8 % (2-9); NEUTROPHILS % (AUTO) 65 % (42-75); PLATELET COUNT 261 x10^3/uL (130-400); RED BLOOD COUNT 4.43 x10^6/uL (3.82-5.3); RED CELL DISTRIBUTION WIDTH 13.9 % (9.6-15.2)
[2020-10-25 18:32] LABS: ALANINE AMINOTRANSFERASE 26 U/L (12-78); ALBUMIN 4.1 g/dL (3.4-5.0); ANION GAP 9 mmol/L (5-15); CALCIUM 9.7 mg/dL (8.5-10.1); CHLORIDE 103 mmol/L (98-107); CREATININE 0.89 mg/dL (0.55-1.02)
[2020-10-25 18:34] LABS: ALKALINE PHOSPHATASE 130 U/L (45-117); BILIRUBIN,TOTAL 0.8 mg/dL (0.2-1.0); TOTAL PROTEIN 7.8 g/dL (6.4-8.2)
--- NOTE | 2020-10-25 21:15 | NUR ---
PT GOT POKED WITH LORENA COLUNGA ON WEDNESDAY ON LEFT HAND THUMB. PT THUMB IS REDDENED AND SWOLLEN WITH REDDENING CONTINUING DOWN LEFT FOREARM. DENIES FEVER/ CHILL, VOMITTING, COUGH. PT TAKES BP MEDS AND ELIQUIS. ATTACHED TO MONITORS. VSS. BAEZ. GUILHERME AT BEDSIDE FOR EVAL. CMS INTACT ON LEFT HAND THUMB
--- NOTE | 2020-10-25 21:18 | NUR ---
PT STATES SHE WWAS AT EARLIER AND STARTED ON KEFLEX
[2020-10-25] MEDS ORDERED: LIDOCAINE-MPF 2% ,5ML ONE (21:27)
[2020-10-25] MEDS ORDERED: LIDOCAINE 2%, 20ML SQ ONE (21:30)
--- NOTE | 2020-10-25 21:55 | NUR ---
PA AT BEDSIDE PERFORMING I&D
[2020-10-25] MEDS ORDERED: SULFAMETH./TRIMETHOPRIM DS 800MG/160MG TABLET ONE (22:26)
--- NOTE | 2020-10-25 22:29 | NUR ---
Patient/Caregiver given discharge instructions and they have confirmed that they understand the instructions. Patient ambulatory with steady gait. NAD, all questions answered appropriately, denies additional needs at this time. No personal belongings left in room after discharge.
[2020-10-25 22:30] VITALS: BP 144/86
[2020-10-25] MEDS ORDERED: SULFAMETH./TRIMETHOPRIM DS 800MG/160MG TABLET PO ONE (22:30)
== END 2020-10-25 22:31 | disposition home or self-care (01) ==
LOC: ED 20:00
DX: L03.012 Cellulitis of left finger (principal); I10 Essential (primary) hypertension; I48.91 Unspecified atrial fibrillation; I48.92 Unspecified atrial flutter; E78.00 Pure hypercholesterolemia, unspecified; Z87.891 Personal history of nicotine dependence
CPT/HCPCS: 10060; 36415; 80053; 83605; 85025; 87040; 99283

== ENCOUNTER 2020-11-16 10:52 | Outpatient (CLI) | payer MEDICARE ==
[2020-11-16 11:30] LABS: BASOPHILS % (AUTO) 1 % (0-1); EOSINOPHILS % (AUTO) 4 % (1-7); LYMPHOCYTES % (AUTO) 37 % (22-44); MEAN CORPUSCULAR HEMOGLOBIN 32.6 pg (27.0-34.8); MEAN CORPUSCULAR HGB CONC 33.4 g/dL (32.4-35.8); MEAN PLATELET VOLUME 8.3 fL (7.4-10.4); MONOCYTES % (AUTO) 8 % (2-9); NEUTROPHILS % (AUTO) 51 % (42-75); PLATELET COUNT 223 x10^3/uL (130-400); RED BLOOD COUNT 4.28 x10^6/uL (3.82-5.3); RED CELL DISTRIBUTION WIDTH 14.4 % (9.6-15.2)
[2020-11-16 11:35] LABS: ALANINE AMINOTRANSFERASE 28 U/L (12-78); ALBUMIN 3.8 g/dL (3.4-5.0); ANION GAP 6 mmol/L (5-15); CALCIUM 8.9 mg/dL (8.5-10.1); CHLORIDE 111 mmol/L (98-107); CREATININE 0.84 mg/dL (0.55-1.02)
[2020-11-16 11:45] LABS: MICROSCOPIC NOT IND
[2020-11-16 11:46] LABS: ALKALINE PHOSPHATASE 111 U/L (45-117); BILIRUBIN,TOTAL 0.5 mg/dL (0.2-1.0); CHOL/HDL RATIO 2.1; CHOLESTEROL, TOTAL 188 mg/dL (140-239); HDL CHOL % 47 % (28-40); HDL CHOLESTEROL (DIRECT) 88 mg/dL (40-60); LDL CHOLESTEROL,CALCULATED 81 mg/dL (54-169); LDL/HDL RATIO 0.9 (0.5-3.0); T4 (THYROXINE) 7.2 mcg/dL (4.8-13.9); TOTAL PROTEIN 7.1 g/dL (6.4-8.2); TRIGLYCERIDES 94 mg/dL (50-200); VLDL CHOLESTEROL 19 mg/dL (0-25)
== END 2020-11-16 23:59 | disposition home or self-care (01) ==
LOC: LAB 10:52
PROVIDERS: ATTEND Nurse Practitioner Primary Care
DX: T78.40XD Allergy, unspecified, subsequent encounter (principal); E78.5 Hyperlipidemia, unspecified; G47.00 Insomnia, unspecified; X58.XXXD Exposure to other specified factors, subsequent encounter
CPT/HCPCS: 36415; 80053; 80061; 81003; 84436; 84443; 84481; 85025; 87086